=== PATIENT | male | born 1970 | race Caucasian/White ===

== ENCOUNTER 2017-07-31 17:44 | Emergency (ER) | payer OTHER ==
[~2017-07-31] VITALS: Ht 190.5 cm; Wt 95.3 kg
[2017-07-31] MEDS ORDERED: HYDROCODONE-AP1 EAC6 PO (18:38)
[2017-07-31 19:07] VITALS: BP 143/78
== END 2017-07-31 19:35 | disposition home or self-care (01) ==
LOC: ER 17:44
DX: S82.492A Other fracture of shaft of left fibula, initial encounter for closed fracture (principal); W18.39XA Other fall on same level, initial encounter; Y93.89 Activity, other specified; Y92.89 Other specified places as the place of occurrence of the external cause; Y99.0 Civilian activity done for income or pay